=== PATIENT | female | born 1985 | race African-American/Black ===

== ENCOUNTER 2022-12-01 12:56 | Emergency (ER) | payer OTHER ==
[~2022-12-01 12:56] MED LIST: Iopamidol 300 61% 100 ML VIAL FS ONE
[2022-12-01 13:58] LABS: #Basophils 0.1 10x3/uL (0.0-0.2); #Eosinphils 0.2 10x3/uL (0.0-0.5); #Monocytes 0.8 10x3/uL (0.0-1.1); %Basophils 0.7 % (0.0-2.0); %Eosinophils 1.6 % (0.0-6.0); %Lymphocytes 19.3 % (18.0-47.0); %Monocytes 6.7 % (0.0-10.0); %Neutrophils 68.9 % (40.0-75.0); Hemoglobin 12.8 g/dL (12.0-15.5); Mean Corpuscular HGB CONC 31.8 g/dL (32.0-36.0); Mean Corpuscular Hemoglobin 30.5 pg (27.0-33.0); Mean Platelet Volume 10.5 fl (7.4-10.4); Platelet Count 305 10x3/uL (150-450); White Blood Cell (WBC) Count 11.6 10x3/uL (3.5-10.5)
[2022-12-01 14:10] LABS: ALT (SGPT) 37 U/L (8-55); AST (SGOT) 20 U/L (5-34); Alkaline Phosphatase 69 U/L (40-110); Anion Gap 17 mmol/L (10-20); BUN (Urea Nitrogen) 13 mg/dL (7.0-18.7); Bilirubin, Total 0.2 mg/dL (0.2-1.2); Calc. Creatinine Clearance 0 mL/min (70-130); Calcium 8.9 mg/dL (7.8-10.44); Carbon Dioxide 22 mmol/L (22-29); Chloride 105 mmol/L (98-107); Estimated GFR 81; Globulin 2.6 g/dL (2.4-3.5); Glucose 96 mg/dL (70-105); Potassium 4.1 mmol/L (3.5-5.1); Protein, Total 6.6 g/dL (6.0-8.3); Sodium 140 mmol/L (136-145)
[2022-12-01] MEDS ORDERED: Acetaminophen 500 MG TAB ONE (14:39)
[2022-12-01] MEDS ORDERED: hydrOXYzine 25 MG TAB ONE (15:27)
== END 2022-12-01 16:15 | disposition home or self-care (01) ==
LOC: CSHERS 12:56
DX: R00.2 Palpitations (principal); I10 Essential (primary) hypertension; F17.210 Nicotine dependence, cigarettes, uncomplicated
CPT/HCPCS: 36415; 71045; 71275; 80053; 84484; 85025; 85379; 93005

== ENCOUNTER 2022-12-02 | Emergency (ER) | payer OTHER | END 2022-12-02 01:28 | disposition home or self-care (01) | LOC: CSHERS | DX: F41.0 Panic disorder [episodic paroxysmal anxiety] (principal); I10 Essential (primary) hypertension; F17.210 Nicotine dependence, cigarettes, uncomplicated | CPT/HCPCS: 36415; 71045; 71275; 80053; 84484; 85025; 85379; 93005 ==